=== PATIENT | male | born 1985 | race Caucasian/White ===

== ENCOUNTER 2023-11-28 17:35 | Emergency (ER) | payer OTHER ==
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
[2023-11-28] MEDS: oxyCODONE-APAP 10-325MG 1 EACH TAB PO STA (18:46)
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
[2023-11-28 22:52] VITALS: RESP 18
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
[2023-11-28] MEDS: ACET/COD 300 MG/30 MG STARTER PACK 6 TAB BTL PO STA (23:36)
[2023-11-29 00:15] VITALS: BP 138/99; PULSE 87; TEMP 98.3
== END 2023-11-28 23:41 | disposition home or self-care (01) ==
LOC: EC 17:35
DX: S82.141A Displaced bicondylar fracture of right tibia, initial encounter for closed fracture (principal); V89.2XXA Person injured in unspecified motor-vehicle accident, traffic, initial encounter; Y92.410 Unspecified street and highway as the place of occurrence of the external cause
CPT/HCPCS: 99284

== ENCOUNTER 2024-05-02 04:33 | Emergency (ER) | payer OTHER ==
[2024-05-02 04:38] VITALS: TEMP 97.5
[2024-05-02] MEDS: ONDANSETRON 4 MG/2 ML VIAL IVP STA (05:06)
[2024-05-02] MEDS: HYDROmorphone 1 MG/ML 1 ML SYRINGE IVP STA (05:06)
[2024-05-02] MEDS: SODIUM CHLORIDE 0.9% 2,000 ML IV STA (05:07)
[2024-05-02 05:13] LABS: Basophils % (A) 0 %; Eosinophils # (A) 0.2 k/uL (0-0.7); Eosinophils % (A) 2 %; HCT 44.5 % (39.0-53.0); HGB 15.6 gm/dL (13.0-17.5); Lymphocytes # (A) 2.6 k/uL (1.0-4.8); Lymphocytes % (A) 28 %; MCH 34.1 pg (25.0-35.0); MCV 97.3 fL (80.0-100.0); Mean Platelet Volume 8.1; Monocytes # (A) 0.4 k/uL (0-1.0); Monocytes % (A) 5 %; Neutrophils # (A) 6.1 k/uL (1.3-7.7); Neutrophils % (A) 64 %; Platelet Count 207 k/uL (150-450); RBC 4.57 m/uL (4.30-5.90); WBC 9.5 k/uL (3.8-10.6)
[2024-05-02 05:28] LABS: ALT 32 U/L (4-49); AST 26 U/L (17-59); African American GFR (CKD) >90 (>60 ml/min/1.73 sqM); Alkaline Phosphatase 67 U/L (38-126); Anion Gap 6 mmol/L; Blood Urea Nitrogen 17 mg/dL (9-20); Carbon Dioxide 23 mmol/L (22-30); Chloride 109 mmol/L (98-107); Glucose 167 mg/dL (74-99); Lipase 209 U/L (23-300); Non-African American GFR(CKD) >90 (>60 ml/min/1.73 sqM); Potassium 3.9 mmol/L (3.5-5.1); Sodium 138 mmol/L (137-145); Total Bilirubin 0.5 mg/dL (0.2-1.3); Total Protein 6.4 g/dL (6.3-8.2)
--- NOTE | 2024-05-02 05:36 | ED ---
Abdominal Pain HPI - General Source: patient Mode of arrival: ambulatory Limitations: no limitations <Francie Portillo - Last Filed: 05/02/24 06:11> <Zack Jara - Last Filed: 05/02/24 14:27> - General Chief Complaint: Abdominal Pain Stated Complaint: Abd Pain Time Seen by Provider: 05/02/24 04:40 - History of Present Illness Initial Comments: 39-year-old male presents emergency department reporting right upper quadrant abdominal pain. States he ate [place] food last night and the pain started sh ortly afterwards. He believes it is his gallbladder as he states he has had issues with his gallbladder in the past. He was diagnosed with gallbladder sludge. He denies nausea or vomiting. He takes [place] for chronic pain and states that this has not touched his pain currently. No fevers. No hemoptysis. Denies changes in his bowel or bladder habits. No other alleviating, precipitating or modifying factors (Francie Portillo) - Related Data Home Medications Medication Instructions Recorded Confirmed Naproxen [Naprosyn] 500 mg PO BID PRN 05/02/24 05/02/24 Previous Rx's Medication Instructions Recorded HYDROcodone/APAP 5-325MG [[place] 1 tab PO Q6HR PRN 3 Days #12 tab 11/28/23 5-325] Allergies Allergy/AdvReac Type Severity Reaction Status Date / Time No Known Allergies Allergy Verified 05/02/24 07:40 Review of Systems ROS Other: All systems not noted in ROS Statement are negative. <Francie Portillo - Last Filed: 05/02/24 06:11> ROS Other: All systems not noted in ROS Statement are negative. <Zack Jara - Last Filed: 05/02/24 14:27> ROS Statement: Those systems with pertinent positive or pertinent negative responses have been documented in the HPI. Past Medical History Past Medical History: No Reported History History of Any Multi-Drug Resistant Organisms: None Reported Past Surgical History: Orthopedic Surgery Past Psychological History: No Psychological Hx Reported Smoking Status: Never smoker Past Alcohol Use History: Occasional Past Drug Use History: None Reported <Francie Portillo - Last Filed: 05/02/24 06:11> General Exam Limitations: no limitations General appearance: alert, in no apparent distress Head exam: Present: atraumatic, normocephalic, normal inspection Eye exam: Present: normal appearance, PERRL, EOMI. Absent: scleral icterus, conjunctival injection, periorbital swelling ENT exam: Present: normal exam, mucous membranes moist Neck exam: Present: normal inspection. Absent: tenderness, meningismus, lymphadenopathy Respiratory exam: Present: normal lung sounds bilaterally. Absent: respiratory distress, wheezes, rales, rhonchi, stridor Cardiovascular Exam: Present: regular rate, normal rhythm, normal heart sounds. Absent: systolic murmur, diastolic murmur, rubs, gallop, clicks GI/Abdominal exam: Present: soft, tenderness (Right upper quadrant), normal bowel sounds. Absent: distended, guarding, rebound, rigid Extremities exam: Present: normal inspection, full ROM, normal capillary refill. Absent: tenderness, pedal edema, joint swelling, calf tenderness Back exam: Present: normal inspection Neurological exam: Present: alert, oriented X3, CN II-XII intact Psychiatric exam: Present: normal affect, normal mood Skin exam: Present: warm, dry, intact, normal color. Absent: rash <Francie Portillo - Last Filed: 05/02/24 06:11> Course Vital Signs 05/02/24 05/02/24 05/02/24 04:35 05:07 06:45 Temperature 97.5 F L Pulse Rate 75 73 70 Respiratory 20 19 19 Rate Blood Pressure 149/96 146/104 127/89 O2 Sat by Pulse 98 97 Oximetry 05/02/24 09:00 Temperature Pulse Rate 77 Respiratory 16 Rate Blood Pressure 137/100 O2 Sat by Pulse 99 Oximetry Medical Decision Making - Lab Data Result diagrams: 05/02/24 05:01 05/02/24 05:01 <Francie Portillo - Last Filed: 05/02/24 06:11> - Lab Data Result diagrams: 05/02/24 05:01 05/02/24 05:01 <Zack Jara - Last Filed: 05/02/24 14:27> - Medical Decision Making Was pt. sent in by a medical professional or institution (, PA, BUTTON MAKER AND INSTALLER, urgent care, hospital, or senior care...) When possible be specific @ -No Did you speak to anyone other than the patient for history (EMS, parent, family, police, friend...)? What history was obtained from this source @ -No Did you review nursing and triage notes (agree or disagree)? Why? @ -I reviewed and agree with nursing and triage notes Were old charts reviewed (outside hosp., previous admission, EMS record, old EKG, old radiological studies, urgent care reports/EKG's, senior care records)? Report findings @ -I reviewed previous ED visits where patient was seen for trauma however has no abdominal imaging performed Differential Diagnosis (chest pain, altered mental status, abdominal pain women, abdominal pain men, vaginal bleeding, weakness, fever, dyspnea, syncope, headache, dizziness, GI bleed, back pain, seizure, CVA, palpatations, mental health, musculoskeletal)? @ -Differential Abdominal Pain Men: Appendicitis, cholecystitis, diverticulosis, ischemic bowel, pancreatitis, hepatitis, UTI, gastroenteritis, AAA, incarcerated hernia, bowel obstruction, constipation, inflammatory bowel, hepatitis, peptic ulcer disease, splenic infarction, perforated viscus, testicular torsion, this is not meant to be an all-inclusive list EKG interpreted by me (3pts min.). @ -yes and demonstrates sinus rhythm with a rate of 75. NE interval 162. QRS 98. QTc of 385. No acute ST segment elevation or depression X-rays interpreted by me (1pt min.). @ -None done CT interpreted by me (1pt min.). @ -Pending at this time U/S interpreted by me (1pt. min.). @ -None done What testing was considered but not performed or refused? (CT, X-rays, U/S, labs)? Why? @ -Gallbladder ultrasound was considered however not available at this time What meds were considered but not given or refused? Why? @ -None Did you discuss the management of the patient with other professionals (professionals i.e. , PA, BUTTON MAKER AND INSTALLER, lab, RT, psych nurse, forensic social worker, web software engineer, teacher, natural resource officer, case loader operator)? Give summary @ -No Was smoking cessation discussed for >3mins.? @ -No Was critical care preformed (if so, how long)? @ -No Were there social determinants of health that impacted care today? How? (Homelessness, low income, unemployed, alcoholism, drug addiction, transportation, low edu. Level, literacy, decrease access to med. care, skilled nursing, rehab)? @ -No Was there de-escalation of care discussed even if they declined (Discuss DNR or withdrawal of care, Hospice)? DNR status @ -No What co-morbidities impacted this encounter? (DM, HTN, Smoking, COPD, CAD, Cancer, CVA, ARF, Chemo, Hep., AIDS, mental health diagnosis, sleep apnea, morbid obesity)? @ -None Was patient admitted / discharged? Hospital course, mention meds given and route, prescriptions, significant lab abnormalities, going to OR and other pertinent info. @ -Upon arrival patient seen and evaluated in room 11. Thorough history and physical exam was performed. IV access was established. Patient was given pain medications. Laboratory studies are conducted. CT is performed. Patient is reevaluated Undiagnosed new problem with uncertain prognosis? @ -No Drug Therapy requiring intensive monitoring for toxicity (Heparin, Nitro, Insu suleiman, Cardizem)? @ -No Were any procedures done? @ -No Diagnosis/symptom? @ -Right Upper quadrant abdominal pain Acute, or Chronic, or Acute on Chronic? @ -Acute on chronic Uncomplicated (without systemic symptoms) or Complicated (systemic symptoms)? @ -Complicated Side effects of treatment? @ -No Exacerbation, Progression, or Severe Exacerbation? @ -No Poses a threat to life or bodily function? How? (Chest pain, [place], [place], pneumonia, PE, COPD, DKA, ARF, appy, cholecystitis, CVA, Diverticulitis, Homicidal, Suicidal, threat to staff... and all critical care pts) @ -No (Francie Portillo) Patient signed out to me pending results of CT imaging. Briefly, patient presents with abdominal pain with known gallbladder issues. Has been told in the past to have it removed. Presents today with abdominal discomfort. Patient given analgesia medications and symptoms have resolved. Laboratory studies are unremarkable. CT imaging obtained and was pending. CT imaging is interpreted by myself reveals a hydropic gallbladder with a gallstone but no evidence of cholecystitis. On reevaluation, patient is asymptomatic. Discussed his results. As he is currently asymptomatic, with normal labs I do believe it is reasonable for him to be discharged home with follow-up with surgery. Patient was in agreement this plan. Likely chronic issue. He was in agreement this plan. I instructed the patient to follow up with their PCP in the next 1-3 days. I provided contact information for follow up with general surgery. I explained that the patient should return to the emergency department if they experience any worsening symptoms. Strict return precautions were discussed with the patient. The patient expressed understanding of these instructions. I answered all questions that the patient had. The patient was discharged home in good condition with their prescriptions and follow up information. Diagnosis/symptom? @ -Cholelithiasis, biliary colic Acute, or Chronic, or Acute on Chronic? @ -Acute Uncomplicated (without systemic symptoms) or Complicated (systemic symptoms)? @ -Uncomplicated Side effects of treatment? @ -None Exacerbation, Progression, or Severe Exacerbation] @ -No Poses a threat to life or bodily function? @ -Unlikely at this time (Zack Jara) - Lab Data Lab Results 05/02/24 05/02/24 Range/Units 05:01 05:01 WBC 9.5 (3.8-10.6) k/uL RBC 4.57 (4.30-5.90) m/uL Hgb 15.6 (13.0-17.5) gm/dL Hct 44.5 (39.0-53.0) % MCV 97.3 (80.0-100.0) fL MCH 34.1 (25.0-35.0) pg MCHC 35.0 (31.0-37.0) g/dL RDW 13.0 (11.5-15.5) % Plt Count 207 (150-450) k/uL MPV 8.1 Neutrophils % 64 % Lymphocytes % 28 % Monocytes % 5 % Eosinophils % 2 % Basophils % 0 % Neutrophils # 6.1 (1.3-7.7) k/uL Lymphocytes # 2.6 (1.0-4.8) k/uL Monocytes # 0.4 (0-1.0) k/uL Eosinophils # 0.2 (0-0.7) k/uL Basophils # 0.0 (0-0.2) k/uL Sodium 138 (137-145) mmol/L Potassium 3.9 (3.5-5.1) mmol/L Chloride 109 H (98-107) mmol/L Carbon Dioxide 23 (22-30) mmol/L Anion Gap 6 mmol/L BUN 17 (9-20) mg/dL Creatinine 0.77 (0.66-1.25) mg/dL Est GFR (CKD-EPI)AfAm >90 (>60 ml/min/1.73 sqM) Est GFR (CKD-EPI)NonAf >90 (>60 ml/min/1.73 sqM) Glucose 167 H (74-99) mg/dL Calcium 9.0 (8.4-10.2) mg/dL Total Bilirubin 0.5 (0.2-1.3) mg/dL AST 26 (17-59) U/L ALT 32 (4-49) U/L Alkaline Phosphatase 67 (38-126) U/L Total Protein 6.4 (6.3-8.2) g/dL Albumin 4.0 (3.5-5.0) g/dL Lipase 209 (23-300) U/L Disposition <Francie Portillo - Last Filed: 05/02/24 06:11> Is patient prescribed a controlled substance at d/c from ED?: No Time of Disposition: 08:42 <Zack Jara - Last Filed: 05/02/24 14:27> Clinical Impression: Cholelithiasis, Biliary colic Disposition: HOME SELF-CARE Condition: Good Instructions (If sedation given, give patient instructions): Biliary Colic (ED), Gallstones (ED) Additional Instructions: You have gallstones, as well as symptomatic biliary colic. No evidence of Cholecystitis at this time which is infection of the gallstone and gallbladder. However I do recommend follow-up with surgery considering your symptoms. Return if any worsening symptoms. Referrals: None,Stated [Primary Care Provider] - 1-2 days Xavier Gonzales MD [STAFF PHYSICIAN] - 1-2 days
--- NOTE | 2024-05-02 07:57 | CT ---
EXAMINATION TYPE: CT abdomen pelvis w con DATE OF EXAM: 05/02/2024 COMPARISON: None HISTORY: PT presents with right upper quadrant pain , started at 0100 CT DLP: 1345 mGycm CONTRAST: CT scan of the abdomen and pelvis is performed without Oral Contrast and with IV Contrast, patient in jected with 100 mL of Isovue 300. FINDINGS: LUNG BASES-: No visible nodule. No infiltrate. LIVER/GB: The gallbladder is hydropic at 11.7 cm. There is evidence of cholelithiasis. No definite wall thickening or pericholecystic fluid. No space occupying hepatic lesion. Biliary tree is of norm al caliber. PANCREAS: No inflammation. No distinct mass. SPLEEN: No splenic enlargement. No lesion seen. ADRENALS: No nodule. No thickening. KIDNEYS/BLADDER: No hydronephrosis. No nephrolithiasis. No distinct renal mass. Urinary bladder g rossly unremarkable. BOWEL: Normal appendix. Normal bowel caliber. No inflammation. GENITAL ORGANS: No gross abnormality. LYMPH NODES: No greater than 1cm abdominal or pelvic lymph nodes are appreciated. AORTA: No significant abnormality. OSSEOUS STRUCTURES: No significant abnormality is seen. OTHER: No significant additional abnormality is seen. IMPRESSION: 1. The gallbladder is hydropic at 11.7 cm. There is evidence of cholelithiasis. No definite wall thic kening or pericholecystic fluid. [facility], , 05/02/2024 7:54 AM
[2024-05-02] MEDS: ONDANSETRON 4 MG ODT STARTER PACK 2 TAB BTL PO STA (08:59)
[2024-05-02 09:04] VITALS: BP 137/100; PULSE 77; RESP 16
== END 2024-05-02 09:00 | disposition home or self-care (01) ==
LOC: EC 04:33
DX: K80.70 Calculus of gallbladder and bile duct without cholecystitis without obstruction (principal)
CPT/HCPCS: 36415; 74177; 80053; 83690; 85025; 93005; 96361; 96374; 99285

== ENCOUNTER → 2024-11-03 | Outpatient (CLI) | payer OTHER ==
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
== END | disposition home or self-care (01) ==
LOC: RADCTMAIN 13:51
PROVIDERS: ATTEND Physical Medicine & Rehabilitation
DX: S82.141A Displaced bicondylar fracture of right tibia, initial encounter for closed fracture (principal); M76.811 Anterior tibial syndrome, right leg; V89.2XXA Person injured in unspecified motor-vehicle accident, traffic, initial encounter; M85.88 Other specified disorders of bone density and structure, other site

== ENCOUNTER → 2025-02-14 | Outpatient (CLI) | payer OTHER ==
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
== END | disposition home or self-care (01) ==
LOC: RADMRIMAIN 14:33
PROVIDERS: ATTEND Physical Medicine & Rehabilitation
DX: S82.141A Displaced bicondylar fracture of right tibia, initial encounter for closed fracture (principal); M76.811 Anterior tibial syndrome, right leg; V89.2XXA Person injured in unspecified motor-vehicle accident, traffic, initial encounter